=== PATIENT | female | born 1950 | race Caucasian/White ===

== ENCOUNTER 2019-12-07 12:07 | Inpatient (IN) ==
[2019-12-07] MEDS ORDERED: Ondansetron 4 MG/2 ML VIAL IVP ONE (12:15)
[2019-12-07] MEDS ORDERED: Morphine Sulfate 2 MG/ML SYRINGE IVP ONE (12:15)
[2019-12-07] MEDS ORDERED: 0.9 % Sodium Chloride 1,000 ML IVC ONE (12:16)
[2019-12-07 12:37] LABS: Basophils # 0.1 K/mcL (0.0-0.2); Basophils % 0.8 %; Eosinophils # 0.2 K/mcL (0.0-0.6); Hematocrit 42.3 % (35.3-44.9); Hemoglobin 13.5 g/dL (11.5-15.4); Immature Granulocytes % 0.6 % (0-4); Lymphocytes # 2.1 K/mcL (0.6-4.6); Lymphocytes % 19.5 %; Mean Corpuscular HGB Conc 31.9 g/dL (31.6-35.5); Mean Corpuscular Hemoglobin 31.4 pg (28.0-33.3); Mean Corpuscular Volume 98.4 fL (83.0-100.0); Mean Platelet Volume 8.9 fL (9.4-12.4); Monocytes # 0.5 K/mcL (0.0-1.3); Monocytes % 4.9 %; Neutrophils # 7.7 K/mcL (1.6-8.9); Platelet Count 287 K/mcL (140-400); Red Cell Distribution Width 12.9 % (11.5-14.5); Segmented Neutrophils % 72.2 %; White Blood Count 10.7 K/mcL (4.3-11.1)
[2019-12-07] MEDS ORDERED: *HR* HYDROmorphone (PF) 1 MG/ML SYRINGE IVP ONE ×2 (12:45→14:01)
[2019-12-07 12:46] LABS: Prothrombin Time 11.6 Seconds (9.4-12.1)
[2019-12-07 12:55] LABS: BUN/Creatinine Ratio 18 (6-26); Blood Urea Nitrogen 13 mg/dL (8-23); Calcium 9.6 mg/dL (8.6-10.3); Carbon Dioxide 25 mEq/L (23-29); Chloride 104 mEq/L (98-107); Glucose 131 mg/dL (70-105); Osmolality,Calculated 288 (280-300); Potassium 3.7 mEq/L (3.5-5.1); Sodium 138 mEq/L (136-145); eGFR For African Americans > 60 (> 60); eGFR For Non-African Americans > 60 (> 60)
[2019-12-07 15:22] LABS: Adenovirus Not Detected (Not Detect); Bordetella Pertussis Not Detected (Not Detect); Chlamydophila pneumoniae Not Detected (Not Detect); Coronavirus 229E Not Detected (Not Detect); Coronavirus HKU1 Not Detected (Not Detect); Coronavirus NL63 Not Detected (Not Detect); Coronavirus OC43 Not Detected (Not Detect); Human Metapneumovirus Not Detected (Not Detect); Human Rhinovirus/Enterovirus Not Detected (Not Detect); Influenza A Subtype 2009 H1 Not Detected (Not Detect); Influenza B Not Detected (Not Detect); Mycoplasma pneumoniae Not Detected (Not Detect); Parainfluenza Virus 1 Not Detected (Not Detect); Parainfluenza Virus 2 Not Detected (Not Detect); Parainfluenza Virus 3 Not Detected (Not Detect); Parainfluenza Virus 4 Not Detected (Not Detect); Respiratory Syncytial Virus Not Detected (Not Detect); SARS-CoV-2 Not Detected (Not Detect)
[2019-12-07] MEDS ORDERED: Naloxone 0.4 MG/ML INJ IVP PRN (15:52)
[2019-12-07] MEDS ORDERED: Acetaminophen 325 MG TABLET PO PRN (15:52)
[2019-12-07] MEDS ORDERED: *HR* HYDROmorphone 2 MG/ML SYRINGE IVP PRN (15:52)
[2019-12-07] MEDS ORDERED: Ondansetron 4 MG/2 ML VIAL IVP PRN (15:52)
[2019-12-07] MEDS ORDERED: Morphine Sulfate 2 MG/ML SYRINGE IVP PRN (15:52)
[2019-12-07] MEDS: *HR* OxyCODONE/APAP 7.5/325 TABLET PO PRN ×2 (17:20→23:57)
[2019-12-07] MEDS: *HR* Heparin 5,000 UNIT/ML VIAL SQ SCH (20:01)
[2019-12-08 02:48] LABS: Basophils % 0.5 %; Eosinophils # 0.1 K/mcL (0.0-0.6); Eosinophils % 1.2 %; Hemoglobin 13.7 g/dL (11.5-15.4); Immature Granulocytes % 0.5 % (0-4); Lymphocytes # 1.5 K/mcL (0.6-4.6); Lymphocytes % 18.4 %; Mean Corpuscular HGB Conc 31.9 g/dL (31.6-35.5); Mean Corpuscular Hemoglobin 32.1 pg (28.0-33.3); Mean Corpuscular Volume 100.7 fL (83.0-100.0); Mean Platelet Volume 9.3 fL (9.4-12.4); Monocytes # 0.5 K/mcL (0.0-1.3); Neutrophils # 6.2 K/mcL (1.6-8.9); Platelet Count 237 K/mcL (140-400); Red Blood Count 4.27 M/mcL (3.82-4.97); Segmented Neutrophils % 73.4 %; White Blood Count 8.4 K/mcL (4.3-11.1)
[2019-12-08 03:16] LABS: BUN/Creatinine Ratio 23 (6-26); Blood Urea Nitrogen 15 mg/dL (8-23); Calcium 9.3 mg/dL (8.6-10.3); Carbon Dioxide 21 mEq/L (23-29); Chloride 104 mEq/L (98-107); Glucose 122 mg/dL (70-105); Magnesium 1.8 mg/dL (1.6-2.6); Osmolality,Calculated 282 (280-300); Phosphorous 3.4 mg/dL (2.7-4.5); Potassium 3.9 mEq/L (3.5-5.1); Sodium 135 mEq/L (136-145); eGFR For African Americans > 60 (> 60); eGFR For Non-African Americans > 60 (> 60)
[2019-12-08] MEDS: *HR* OxyCODONE/APAP 7.5/325 TABLET PO PRN (06:17)
[2019-12-08] MEDS: *HR* Heparin 5,000 UNIT/ML VIAL SQ SCH (06:18)
[2019-12-08] MEDS: Cholecalciferol (D-3) 1,000 UNIT (25MCG) TABLET PO SCH (07:22)
[2019-12-08] MEDS ORDERED: *HR* FentaNYL (PF) 100 MCG/2 ML VIAL ONE ×2 (10:02→12:43)
[2019-12-08] MEDS ORDERED: *HR* Midazolam HCl 2 MG/2 ML VIAL ONE (10:02)
[2019-12-08] MEDS ORDERED: Vancomycin 1,000 MG VIAL ONE (10:17)
[2019-12-08] MEDS ORDERED: Albumin Human 5% 12.5 GM/250 ML IV.SOLN ONE (10:22)
[2019-12-08] MEDS ORDERED: Dexamethasone 4 MG/ML VIAL ONE ×2 (10:41→12:12)
[2019-12-08] MEDS ORDERED: *HR* Promethazine 25 MG/ML VIAL IVP PRN ×2 (10:41→15:48)
[2019-12-08] MEDS ORDERED: Ondansetron 4 MG/2 ML VIAL IVP PRN (10:41)
[2019-12-08] MEDS ORDERED: *HR* Labetalol 20 MG/4 ML SYRINGE IVP PRN (10:41)
[2019-12-08] MEDS ORDERED: *HR* Rocuronium Bromide 50 MG/5 ML VIAL ONE ×2 (10:41→12:05)
[2019-12-08] MEDS ORDERED: *HR* Propofol 200 MG/20 ML VIAL IVP ONE (10:41)
[2019-12-08] MEDS ORDERED: *HR* OxyCODONE Immed Rel 5 MG TABLET PO PRN (10:41)
[2019-12-08] MEDS ORDERED: *HR* HYDROmorphone (PF) 1 MG/ML SYRINGE IVP PRN (10:41)
[2019-12-08] MEDS ORDERED: *HR* Succinylcholine 200 MG/10 ML VIAL IVP ONE (10:42)
[2019-12-08] MEDS ORDERED: Lidocaine HCL 4 ML Topical Solution (Laryng-O-Jet Kit Sterile Pak) TP ONE (10:45)
[2019-12-08] MEDS ORDERED: *HR* HYDROMORPHONE 2 MG/ML VIAL ONE (11:21)
[2019-12-08] MEDS ORDERED: ceFAZolin 2,000 MG in 0.9 % Sodium Chloride 100 ML IVPB ONE (11:40)
[2019-12-08] MEDS ORDERED: Tranexamic Acid 1,000 MG/10 ML VIAL ONE (11:46)
[2019-12-08] MEDS ORDERED: *HR* PHENYLEPHRINE 1,000 MCG/10 ML SYRINGE IVP ONE (11:49)
[2019-12-08] MEDS ORDERED: Sennosides 8.6 MG TABLET PO PRN (15:48)
[2019-12-08] MEDS ORDERED: MOM Conc 10 ML UD.LIQ PO PRN (15:48)
[2019-12-08] MEDS ORDERED: Naloxone 0.4 MG/ML INJ IVP PRN (15:48)
[2019-12-08] MEDS ORDERED: Ringers Solution, Lactated 1,000 ML IVC SCH (16:00)
[2019-12-08] MEDS: Ascorbic Acid 500 MG TABLET PO SCH (16:51)
[2019-12-08] MEDS: Ketorolac 15 MG/ML VIAL IVP SCH ×2 (18:17→23:23)
[2019-12-08] MEDS: CeFAZolin 2 GM/120 ML BAG IVPB SCH (23:06)
[2019-12-09] MEDS: Ketorolac 15 MG/ML VIAL IVP SCH ×2 (04:58→14:04)
[2019-12-09] MEDS ORDERED: TOTAL JOINT MIXTURE (100ML) INTRAART ONE (06:00)
[2019-12-09] MEDS ORDERED: Povidone-Iodine 45 ML, Sodium Chloride IRRigation 1,000 ML IR ONE (06:00)
[2019-12-09] MEDS ORDERED: Multivit/Ca/Min/Fe/FA 1 TAB TABLET PO SCH (09:00)
[2019-12-09] MEDS: CeFAZolin 2 GM/120 ML BAG IVPB SCH (09:29)
[2019-12-09] MEDS: Ascorbic Acid 500 MG TABLET PO SCH (09:29)
[2019-12-09] MEDS: *HR* OxyCODONE/APAP 7.5/325 TABLET PO PRN (09:29)
[2019-12-09] MEDS: Cholecalciferol (D-3) 1,000 UNIT (25MCG) TABLET PO SCH (09:29)
[2019-12-09 11:30] LABS: Basophils % 0.2 %; Eosinophils # 0.1 K/mcL (0.0-0.6); Eosinophils % 0.8 %; Hematocrit 30.3 % (35.3-44.9); Immature Granulocytes % 0.8 % (0-4); Lymphocytes # 0.9 K/mcL (0.6-4.6); Lymphocytes % 8.5 %; Mean Corpuscular HGB Conc 32.7 g/dL (31.6-35.5); Mean Platelet Volume 9.6 fL (9.4-12.4); Monocytes # 0.7 K/mcL (0.0-1.3); Monocytes % 6.5 %; Neutrophils # 8.4 K/mcL (1.6-8.9); Platelet Count 176 K/mcL (140-400); Red Cell Distribution Width 12.9 % (11.5-14.5); Segmented Neutrophils % 83.2 %; White Blood Count 10.1 K/mcL (4.3-11.1)
[2019-12-09 11:31] LABS: Hemoglobin 9.9 g/dL (11.5-15.4)
[2019-12-09 11:47] LABS: BUN/Creatinine Ratio 18 (6-26); Blood Urea Nitrogen 16 mg/dL (8-23); Carbon Dioxide 23 mEq/L (23-29); Chloride 104 mEq/L (98-107); Glucose 100 mg/dL (70-105); Osmolality,Calculated 283 (280-300); Potassium 3.7 mEq/L (3.5-5.1); Sodium 136 mEq/L (136-145); eGFR For African Americans > 60 (> 60); eGFR For Non-African Americans > 60 (> 60)
[2019-12-09 12:04] VITALS: BP 90/57
[2019-12-09] MEDS ORDERED: Aspirin Enteric Coated 81 MG Tablet PO SCH (15:53)
== END 2019-12-09 15:20 | disposition home health service (06) | DRG 470 ==
LOC: 3NENU 12:07 → EMEROOARM 12:07 → SUATTDRO 15:32 → 3NENU 16:23
PROVIDERS: ADMIT Internal Medicine; ATTEND Internal Medicine